=== PATIENT | female | born 1940 | race African-American/Black ===

== ENCOUNTER 2017-09-30 09:25 | Emergency (ER) | payer MEDICARE, OTHER, MEDICAID ==
[2017-09-30] MEDS ORDERED: Clindamycin 150 MG CAP ONE (10:20)
[2017-09-30] MEDS ORDERED: Adacel (T-DAP) 0.5 ML VIAL ONE (10:20)
== END 2017-09-30 10:29 | disposition home or self-care (01) ==
LOC: BURERS 09:25
DX: L02.414 Cutaneous abscess of left upper limb (principal); I25.10 Atherosclerotic heart disease of native coronary artery without angina pectoris; E11.40 Type 2 diabetes mellitus with diabetic neuropathy, unspecified; E78.5 Hyperlipidemia, unspecified; I10 Essential (primary) hypertension; J44.9 Chronic obstructive pulmonary disease, unspecified; Z79.82 Long term (current) use of aspirin; Z86.73 Personal history of transient ischemic attack (TIA), and cerebral infarction without residual deficits; Z79.4 Long term (current) use of insulin; Z79.02 Long term (current) use of antithrombotics/antiplatelets; Z79.899 Other long term (current) drug therapy
CPT/HCPCS: 10060; 87070; 87077; 87205; 90471; 90715